=== PATIENT | female | born 1995 | race Caucasian/White ===

== ENCOUNTER 2016-05-08 08:33 | Emergency (ER) | payer OTHER ==
[~2016-05-08] VITALS: Ht 157.5 cm; Wt 65.8 kg
[2016-05-08] MEDS ORDERED: CEPH-570 PO (08:47)
[2016-05-08] MEDS ORDERED: SULFAMETH/TRIMETH 800/160 MG TABLET PO ONE (09:00)
[2016-05-08] MEDS ORDERED: PHENAZOPYRIDINE HCL 100 MG TABLET PO ONE (09:00)
--- NOTE | 2016-05-08 09:01 | NUR ---
Patient discharged to home in stable conditon. Written and verbal after care instructions given. Patient verbalizes understanding of instructions.
[2016-05-08] MEDS ORDERED: PHENAZOPYRIDINE HCL 100 MG TABLET ONE (09:07)
[2016-05-08] MEDS ORDERED: SULFAMETH/TRIMETH 800/160 MG TABLET ONE (09:07)
== END 2016-05-08 09:01 | disposition home or self-care (01) ==
LOC: ER 08:33
DX: N39.0 Urinary tract infection, site not specified (principal); Z88.1 Allergy status to other antibiotic agents
CPT/HCPCS: 99283; A4663

== ENCOUNTER 2016-06-14 19:40 | Emergency (ER) | payer OTHER ==
[~2016-06-14] VITALS: Ht 160 cm; Wt 68.0 kg
[~2016-06-14 19:40] MED LIST: CEPH-570 PO
[2016-06-14 20:54] LABS: *BILIRUBIN,URIN NEGATIVE (NEGATIVE); *BLOOD, URINE NEGATIVE (NEGATIVE); *CLARITY,URINE CLEAR (CLEAR); *COLOR,URINE YELLOW (YELLOW); *KETONES,URINE NEGATIVE (NEGATIVE); *PROTEIN,URINE NEGATIVE (NEGATIVE); *UROBILINOGEN,URINE 0.2 E.U./dl (NORMAL); LEUKOCYTE ESTERASE ,URINE NEGATIVE (NEGATIVE); NITRITE, URINE NEGATIVE (NEGATIVE); PH,URINE 5.5 (5.0-8.0); UGLUCOSE NEGATIVE (NEGATIVE)
[2016-06-14 20:56] LABS: *URINE HCG, QUAL NEGATIVE (NEGATIVE)
[2016-06-14] MEDS ORDERED: HYDROCODONE/APAP 5-325MG TABLET PO ONE (21:00)
[2016-06-14 21:03] LABS: BACTERIA,URINE FEW /HPF (NONE SEEN); RBC,URINE 0-3 /HPF (0-3); SQUAMOUS EPITHELIAL CELL,UR FEW /HPF (NONE SEEN); WBC,URINE 0-3 /HPF (0-3)
[2016-06-14] MEDS ORDERED: HYDROCODONE/APAP 5-325MG TABLET ONE (21:06)
--- NOTE | 2016-06-14 21:20 | NUR ---
Radiology at bedside for US.
[2016-06-14] MEDS ORDERED: ALBUTEROL SULFATE 2.5 MG/3 ML NEBU ONE (21:33)
--- NOTE | 2016-06-14 21:44 | NUR ---
Patient discharged to home in stable conditon. Written and verbal after care instructions given. Patient verbalizes understanding of instructions.
== END 2016-06-14 21:45 | disposition home or self-care (01) ==
LOC: ER 19:45
DX: T83.84XA Pain due to genitourinary prosthetic devices, implants and grafts, initial encounter (principal); Z88.1 Allergy status to other antibiotic agents
CPT/HCPCS: 76856; 81001; 84703; 99285; A4663